=== PATIENT | male | born 1995 | race Caucasian/White ===

== ENCOUNTER 2020-02-25 18:39 | Inpatient (IN) | payer OTHER ==
[2020-02-25 20:43] VITALS: BMI 20.9
[2020-02-25] MEDS ORDERED: cloNIDine HCL 0.1 MG TABLET PO PRN (23:56)
[2020-02-26] MEDS ORDERED: ONDANSETRON *ODT* 4 MG TABLET SL PRN (00:16)
[2020-02-26] MEDS ORDERED: MAG HYDROX/AL HYDROX/SIMETH 30 ML UNIT-DOSE CUP PO PRN (00:16)
[2020-02-26] MEDS ORDERED: METHOCARBAMOL 500 MG TABLET PO PRN (00:16)
[2020-02-26] MEDS ORDERED: MAGNESIUM CITRATE 300 ML BOTTLE PO PRN (00:16)
[2020-02-26] MEDS ORDERED: BISMUTH SUBSALICYLATE 524 MG/30 ML UD PO PRN (00:16)
[2020-02-26] MEDS ORDERED: MENTHOL/PHENOL 1 EACH UD MM PRN (00:16)
[2020-02-26] MEDS ORDERED: NICOTINE POLACRILEX 2 MG GUM BUC PRN (00:16)
[2020-02-26] MEDS ORDERED: IBUPROFEN 400 MG TABLET (FP) PO PRN (00:16)
[2020-02-26] MEDS ORDERED: ACETAMINOPHEN 325 MG TABLET (FP) PO PRN ×2 (00:16)
[2020-02-26] MEDS ORDERED: MAGNESIUM HYDROX 2400MG/30ML ORAL SUSPENSION 30 ML CUP PO PRN (00:16)
[2020-02-26] MEDS ORDERED: METHADONE HCL 5 MG TABLET PO ONE (00:45)
[2020-02-26] MEDS ORDERED: METHADONE HCL 10 MG TABLET (FOR DETOX USE ONLY) PO ONE ×3 (00:45→18:00)
[2020-02-26] MEDS ORDERED: METHADONE (DETOX) 10 MG, METHADONE (DETOX) 5 MG PO ONE (01:28)
[2020-02-26] MEDS ORDERED: METHADONE HCL 10 MG TABLET (FOR DETOX USE ONLY) ONE (01:55)
[2020-02-26] MEDS ORDERED: METHADONE HCL 5 MG TABLET (FOR DETOX USE ONLY) ONE (01:55)
[2020-02-26] MEDS: BACITRACIN 0.9 GM PACKET TP SCH ×2 (02:05→11:04)
[2020-02-26] MEDS: CEPHALEXIN MONOHYDRATE 500 MG CAPSULE (UD) PO SCH ×3 (02:05→11:05)
[2020-02-26] MEDS ORDERED: TOLNAFTATE 1% CREAM 15 GM TUBE TP SCH (10:00)
[2020-02-26] MEDS ORDERED: PRENATAL VITAMINS W/ FOLIC ACID TABLET (FP) PO SCH (10:00)
[2020-02-26 11:08] LABS: HEMATOCRIT 37.5 % (35.4-49); HEMOGLOBIN 12.6 GM/dL (11.7-16.9); MCH 30.2 pg (25.7-33.7); MCHC 33.6 g/dl (32.0-35.9); MEAN PLT VOLUME 9.5 fl (7.5-11.1); PLATELET COUNT 241 K/MM3 (134-434); RBC 4.17 M/mm3 (4.00-5.60); RDW 12.8 % (11.9-15.9); WHITE BLOOD COUNT 5.5 K/mm3 (4.0-10.0)
[2020-02-26 11:12] LABS: PH,URINE 7.5 (5.0-8.0); URINE APPEARANCE CLOUDY; URINE BILIRUBIN NEGATIVE (NEGATIVE); URINE COLOR YELLOW; URINE GLUCOSE (UA) NEGATIVE (NEGATIVE); URINE KETONE NEGATIVE (NEGATIVE); URINE LEUK ESTERASE NEGATIVE (NEGATIVE); URINE NITRITE NEGATIVE (NEGATIVE); URINE PROTEIN NEGATIVE (NEGATIVE); URINE UROBILINOGEN 0.2 mg/dL (0.2-1.0)
[2020-02-26 11:17] LABS: POTASSIUM 4.1 mmol/L (3.5-5.1)
[2020-02-26 11:24] LABS: ALBUMIN 3.1 g/dl (3.4-5.0); CALCIUM 8.7 mg/dL (8.5-10.1)
[2020-02-26 11:25] LABS: BLOOD UREA NITROGEN 13.3 mg/dL (7-18)
[2020-02-26 11:27] LABS: BILIRUBIN,TOTAL 0.3 mg/dL (0.2-1); TOT PROT 5.6 g/dl (6.4-8.2)
[2020-02-26 11:28] LABS: CREATININE 0.9 mg/dL (0.55-1.3)
[2020-02-26] MEDS ORDERED: NAPROXEN 500 MG TABLET PO SCH (11:45)
[2020-02-26 13:07] VITALS: BP 135/56; PULSE 70; TEMP 97.3
[2020-02-26] MEDS ORDERED: NICOTINE 7 MG/24 HOURS TOPICAL PATCH TD SCH (15:00)
[2020-02-26] MEDS ORDERED: MELATONIN 5 MG TABLETS PO SCH (22:00)
[2020-02-26] MEDS ORDERED: THIAMINE HCL 100 MG TABLET (FP) PO SCH (22:00)
[2020-02-27] MEDS ORDERED: METHADONE HCL 10 MG TABLET (FOR DETOX USE ONLY) PO ONE (10:00)
[2020-02-28] MEDS ORDERED: METHADONE (DETOX) 10 MG, METHADONE (DETOX) 5 MG PO ONE (10:00)
[2020-02-29] MEDS ORDERED: METHADONE HCL 10 MG TABLET (FOR DETOX USE ONLY) PO ONE (10:00)
[2020-03-01] MEDS ORDERED: METHADONE HCL 5 MG TABLET (FOR DETOX USE ONLY) PO ONE (06:00)
== END 2020-02-26 15:43 | disposition left against medical advice (07) | DRG 770 ==
LOC: YASAS 18:39 → Y6N 23:12
PROVIDERS: ADMIT Allergy & Immunology; ATTEND Allergy & Immunology
PROC: HZ2ZZZZ Detoxification Services for Substance Abuse Treatment (ICD-10-PCS; principal; 2020-02-25)
DX: F11.23 Opioid dependence with withdrawal (principal); F12.20 Cannabis dependence, uncomplicated; F17.210 Nicotine dependence, cigarettes, uncomplicated; L03.119 Cellulitis of unspecified part of limb; E88.09 Other disorders of plasma-protein metabolism, not elsewhere classified; E86.0 Dehydration; B35.4 Tinea corporis
CPT/HCPCS: 36415; 80053; 81003; 85027; 86780; C9803; U0003